=== PATIENT | male | born 1960 | race Caucasian/White ===

== ENCOUNTER 2022-04-15 07:19 | Outpatient (CLI) | payer BC, SELFPAY ==
[2022-04-15 10:45] LABS: Albumin* 4.1 g/dL (3.3-5.0); Chloride* 105 mmol/L (96-114); Sodium* 138 mmol/L (135-149)
[2022-04-15 10:46] LABS: Potassium* 4.2 mmol/L (3.6-5.1)
[2022-04-15 10:47] LABS: Cholesterol* 194 mg/dL (90-199)
[2022-04-15 10:48] LABS: Alanine Aminotransferase* 32 U/L (4-50); Alkaline Phosphatase* 89 U/L (40-150); Aspartate Amino Transferase* 33 U/L (12-35); Bilirubin Total* 0.7 mg/dL (0.1-1.5); Blood Urea Nitrogen* 15 mg/dL (7-30); Carbon Dioxide* 25 mmol/L (20-32); Creatinine* 0.8 mg/dL (0.5-1.5); Estimated Glomerular Filt Rate 100 ml/min; Glucose* 98 mg/dL (60-115); Total Protein* 6.3 g/dL (6.0-8.3); Triglycerides* 108 mg/dL (40-149)
[2022-04-15 10:49] LABS: HDL Cholesterol* 63 mg/dL (>=40); LDL Cholesterol Calculated 109 mg/dL (<100)
[2022-04-15 11:13] LABS: PSA Screen* 0.44 ng/mL (0.10-4.00)
== END 2022-04-15 07:20 | disposition home or self-care (01) ==
LOC: NFLDREF 07:20
PROVIDERS: PCP Family Medicine; Visit Provider Family Medicine
DX: Z00.00 Encounter for general adult medical examination without abnormal findings (principal); E78.5 Hyperlipidemia, unspecified; Z12.5 Encounter for screening for malignant neoplasm of prostate; E66.9 Obesity, unspecified
CPT/HCPCS: 80053; 80061; 84153

== ENCOUNTER 2023-12-08 07:42 | Outpatient (CLI) | payer BC, SELFPAY ==
--- OUTSIDE RECORDS SUMMARY | 2023-12-08 07:44 | XMS_ITS | Continuity of Care Document ---
Author Organization [facility] Address [address] [place] [id number] Phone Care Team Providers Care Garage Supervisor Name Role Phone Myah Stark DNP Unavailable Unavailable Allergies, Adverse Reactions, Alerts Substance Reaction Status Criticality No Known Allergies Active No Inform ation Medications Medication Instructions Dosage Effective Dates (start - stop) Status Comments diclofenac 1 % topical gel apply (2G) by topical route 3 times every day to the affected area(s) 2 G - Active Celebrex 200 mg capsule take 1 capsule by oral route every day PRN for pain - Active Procedures Procedure Date OFFICE/OUTPATIENT VISIT, [facility] Advance Directives Directive Yes / No Effective Date File Name No Information Encounters Encounter Description Practice Location Reason(s) For Visit Diagnoses Date Provider Providers Copied on Encounter OFFICE/OUTPAT IENT VISIT, [facility], [address], [place], [id number], [place] tel:[phone] [facility] [place] left knee pain (chief complaint) Chronic pain syndromePain in left kneeOther idiopathic peripheral autonomic neuropathyOther intermediate school teacher (current) drug therapy [place]. [address], [place], [id number] , [place]. tel:[phone] Referring Provider: Andrew Irizarry, [address] [facility] [place], [address] . tel:[phone] Family History Family Member Type Diagnosis Age At Onset No Information Payers Payer name Insurance type Covered green party ID Radha coy(s) [facility] OOS BL [id number] Social History Type Description Quantity Date Captured Comments Alcohol Use Details wine 1 bottle weekly Caffeine Use Details Unknown Tobacco Use Status Current non-smoker Smoking Status Never smoker Non-Smoking Tobacco Use Details : No Details Available : No Details Available Sex Male Vital Signs Date / Time: Height Weight BMI Pulse Rate Blood Pressure Temperature Respiratory Rate Body Surface Area Head Circumference Head Circ. Percentile Wt./Doc. Percentile BMI percentile Pulse Ox Inhaled Ox 8:09 AM 69.00 in 116.120 kg (256.00 lbs) 37.8 0 kg/m eter (2) Chief Complaint And Reason For Visit From encounter dated '12/02/2023 08:00'. left knee pain (chief complaint). Description: Duration: chronic. Severity level is 8. It occurs intermittently and is worsening. Location: left knee. The pain is aching, throbbing, deep and numbness. The pain is aggravated by sitting. There are no relieving factors. Reason For Referral Reason For Referral No Information Plan Of Treatment Date Type Action Status Goal Tobacco Use. Due on due Goal Review Allergy L ist. Due on due Goal Medication Recon ciliation. Due on due Goal Lipid panel. Due on due Goal Weight. Due on d ue Goal PHQ-9. Due on du e Goal FIT. Due on due Goal FIT-DNA. Due on due Goal Zoster vaccine ( 1st). Due on due Goal Update Social Hi story. Due on due Goal Hepatitis C scre ening. Due on due Goal CT-Colonography. Due on due Goal Height. Due on d ue Goal Unhealthy drug u se screening. Due on due Goal Lifestyle educat ion regarding diet completed Future Order: Radiology Order X- Ray Exam Of Knee Left ([id number]), Ordered on: Ordered History Of Present Illness Encounter Date Complaint History Of Prese nt Illness left knee pain Duration: chroni c. Severity level is 8. It occurs intermittently and is worsening. Location: left knee. The pain is aching, throbbing, deep and numbness. The pain is aggravated by sitting. There are no relieving factors. Comments: Alexis is a 63 y/o male who presents in-clinic today for initial consultation in the setting of chronic intermittent L anterior knee pain with radiation down to the ankle. He is self-referred. Shares the pain gradually began over the past several years which he attributes to weight fluctuation but was recently aggravated 6-8 months ago without any inciting event. Describes the pain as a persistent throbbing when it occurs. Denies any swelling. He states pain is typically worse when sitting, mowing the lawn, walking on uneven ground, or walking on a cement floor.Complains of tingling from the BL knees down to the BL feet, initial onset 1 month ago. Denies any low back pain. He states the tingling sensations occur constantly and is worse during the end of the day. Notes the sensations can also cause severe muscle cramping at night. Wonders if the symptoms are related to diabetes (not currently diabetic).Currently managed on Tylenol and Ibuprofen with varying degrees of pain relief. He states he needs to take #4tabs at a time in order to manage the pain.Patient is interested in pain management through [facility]. Per his intake, he is new to this and is open to trialing anything. Understands he should obtain imaging of the L knee first prior to doing any interventions. Willing to try medications at this time. No other concerns today. Functional Status Date Functional Assessmen t No Information Instructions Date Instruction Additional Infor laurence Lifestyle education regarding di et Related to Body mass index [BMI] 37.0-37.9, adult Assessments Type Assessment Date assessment Chronic pain syndrome assessment Pain in left knee assessment Other idiopathic peripheral auto nomic neuropathy assessment Other retirement (current) drug t herapy impression This is my first angeline luation of the patient. No clinic notes available. [employer] is reviewed and appropriate. [place] [employer] criminal backgrounds check completed with no outstanding results or concerning convictions.Alexis is a 63 y/o male here with chronic intermittent L anterior knee pain with radiation into the ankle. Initial onset several years ago which he attributes to weight fluctuation but was aggravated 6-8 months ago without any inciting event. Also complains of tingling sensations from the BL knees down to the BL feet. Pain has progressively worsened over the past several years impression Intermittent L anter ior knee pain with radiation down to the ankle. Describes the pain as a persistent throbbing. Reports pain is worse with sitting, mowing the lawn, walking on uneven ground, and walking on cement floors.Physical exam on 12/02/23 showed:(+) Active painful ROM(-) L Maribel's and Karolina's(+) L mild crepitus impression Currently managed on Tylenol and Ibuprofen.MNPMP queried and is consistent with the patient's medication history. Criminal background check showed no concerning convictions impression New onset of tinglin g from the BL knees down to the BL feet ~1 month ago. Denies any low back pain. Notes the sensations occurs constantly, worse at the end of the day, and can cause severe muscle cramping at night Mental Status Date Cognitive Assessment Orientation - [place] ed to time, place, person, situation. Patient Care Teams Name Effective Dates (start - stop) Status Members No Information
--- NOTE | 2023-12-08 08:00 | CRLHL7_ITS ---
For Patients: As a result of the Cures Act, medical imaging exams and procedure reports are released immediately into your electronic medical record. You may view this report before your referring provider. If you have questions, please contact your health care provider. INDICATION: Left knee pain. TECHNIQUE: Two views of the left knee. FINDINGS: No left knee fracture or dislocation. Minimal medial compartment narrowing. Minimal hypertrophic change in the lateral compartment. Otherwise normal. Dictated by Tavo Monsivais MD @ 12/09/2023 10:38:23 AM (Electronically Signed)
== END 2023-12-08 07:43 | disposition home or self-care (01) ==
LOC: RAD 07:43
PROVIDERS: PCP Family Medicine; Visit Provider Nurse Practitioner Family
DX: M25.562 Pain in left knee (principal)
CPT/HCPCS: 73560; 80053; 80061; G0103

== ENCOUNTER 2025-05-22 17:26 | Outpatient (CLI) | payer MEDICARE, SELFPAY | END 2025-05-22 17:27 | disposition home or self-care (01) | PROVIDERS: PCP Family Medicine; Visit Provider Family Medicine | DX: Z00.00 Encounter for general adult medical examination without abnormal findings (principal); R20.2 Paresthesia of skin; Z11.59 Encounter for screening for other viral diseases | CPT/HCPCS: 80053; 80061; 82043; 82570; 82607; 86803; G0103 ==